=== PATIENT | female | born 1950 | race Caucasian/White ===

== ENCOUNTER 2017-08-04 01:18 | Inpatient (IN) | payer OTHER, MEDICARE ==
[~2017-08-04] VITALS: Ht 149.9 cm; Wt 57.3 kg
[2017-08-04 01:52] LABS: MEAN CELL VOLUME 96 fl (80.0-100.0); MEAN CORPUSCULAR HGB CONC 32 g/dl (33.0-37.0); MEAN PLATELET VOLUME 9.6 fl (7.4-10.4); PLATELET COUNT 185 K/mm3 (130-400); RED BLOOD COUNT 3.16 M/mm3 (4.10-5.30); REDCELL DISTRIBUTION WIDTH-CV 14.3 % (11.5-14.5)
[2017-08-04 01:57] LABS: HEMATOCRIT 30.2 % (37.0-47.0); HEMOGLOBIN 9.6 g/dl (12.5-16.0); MEAN CORPUSCULAR HEMOGLOBIN 30 pg (27.0-31.0)
[2017-08-04 01:58] LABS: INR 3.1 (0.8-3.0); PROTHROMBIN TIME 37.1 SECONDS (9.7-12.8)
[2017-08-04 02:05] LABS: ALBUMIN 4.1 gm/dL (3.5-5.0); BILIRUBIN,TOTAL 0.2 mg/dL (0.0-1.0); CALCIUM 8.6 mg/dL (8.4-10.2); CREATININE, serum 1.76 mg/dL (0.52-1.25); POTASSIUM 4.5 mmol/L (3.4-5.0); TOTAL PROTEIN 6.5 gm/dL (6.4-8.2)
[2017-08-04 02:06] LABS: BAND 13 % (0-10); LYMPHOCYTE 24 % (20.0-51.0); NEUTROPHILS 53 % (42.0-75.2); PLATELET ESTIMATE NORMAL (NORMAL)
[2017-08-04] MEDS ORDERED: PROGRAF 1MG1 MG PO (02:09)
[2017-08-04] MEDS ORDERED: PROGRAF 0.5MG0.5 MG PO (02:09)
[2017-08-04] MEDS ORDERED: CELLCEPT 250MG250 MG PO (02:10)
[2017-08-04] MEDS ORDERED: PREDNISONE 2.52.5 MG PO (02:11)
[2017-08-04] MEDS ORDERED: MYCELEX10 MG/TAB MM (02:12)
[2017-08-04] MEDS ORDERED: NEBUPENT F300 MG/VIA IH (02:13)
[2017-08-04] MEDS ORDERED: VALCYTE450 MG PO (02:13)
[2017-08-04] MEDS ORDERED: LOPRESSOR 550 MG/TAB PO (02:15)
[2017-08-04] MEDS ORDERED: PROTONIX 40MG T40 MG PO (02:15)
[2017-08-04] MEDS ORDERED: REGLAN 5MG T5 MG/TAB PO (02:15)
[2017-08-04] MEDS ORDERED: PRAVACHOL80 MG PO (02:16)
[2017-08-04] MEDS ORDERED: CLARITIN 1010 MG/TAB PO (02:16)
[2017-08-04] MEDS ORDERED: COUMADIN 3MG3 MG/TAB PO (02:16)
[2017-08-04] MEDS ORDERED: CITRACAL + D CA1 TAB (02:17)
[2017-08-04] MEDS ORDERED: FERROUS SU325 MG/TAB PO (02:17)
[2017-08-04] MEDS ORDERED: TRICOR 48MG48 MG PO (02:18)
[2017-08-04] MEDS ORDERED: ZOLOFT 100MG100 MG PO (02:18)
[2017-08-04] MEDS ORDERED: MULTIPLE VITAMI1 CAP PO (02:19)
[2017-08-04] MEDS ORDERED: MAG-OX 400400 MG/TAB PO (02:19)
[2017-08-04] MEDS ORDERED: VITAMIN C500 MG PO (02:19)
[2017-08-04] MEDS ORDERED: COLACE 100100 MG/CAP PO (02:20)
[2017-08-04 04:18] VITALS: BP 132/68; PULSE 72; TEMP 98.4
[2017-08-04 09:52] VITALS: BP 115/37; PULSE 64; TEMP 98
[2017-08-04 12:00] VITALS: BP 113/39; PULSE 67; TEMP 97.5
[2017-08-04 14:33] VITALS: BP 113/39; PULSE 67; TEMP 97.5
== END 2017-08-04 19:45 | disposition short-term general hospital (02) | DRG 536 ==
LOC: COL.ER 01:18 → SURG 03:06
PROVIDERS: Family Medicine
DX: S72.141A Displaced intertrochanteric fracture of right femur, initial encounter for closed fracture (principal); N17.9 Acute kidney failure, unspecified; Z94.2 Lung transplant status; J44.9 Chronic obstructive pulmonary disease, unspecified; E11.9 Type 2 diabetes mellitus without complications; Z86.718 Personal history of other venous thrombosis and embolism; Z79.01 Long term (current) use of anticoagulants; Z87.891 Personal history of nicotine dependence; W01.0XXA Fall on same level from slipping, tripping and stumbling without subsequent striking against object, initial encounter
CPT/HCPCS: A9284; J1720; J2270; J2405; J7030